=== PATIENT | male | born 1965 | race Caucasian/White ===

== ENCOUNTER 2023-09-14 13:30 | Emergency (ER) | payer OTHER ==
[2023-09-14 14:23] LABS: Absolute Eosinophils 0.2 K/uL (0-0.5); Absolute Lymphocytes (CBC) 1.2 K/uL (0.7-4.9); Absolute Monocytes 0.4 K/uL (0.1-1.3); Absolute Neutrophil 2.1 K/uL (1.8-8.0); Basophils % 0.6 % (0-1.3); Eosinophils % 4.1 % (0-4.4); Hematocrit 35.9 % (39.6-49.0); Hemoglobin 12.2 g/dL (13.6-17.9); Lymphocytes % 29.9 % (15.3-44.8); MCH 34.2 pg (27.0-35.0); MCHC 33.9 g/dL (32.0-36.0); MCV 100.9 fL (80-100); MPV 8.1 fL (7.6-11.3); Monocytes % 11.2 % (3.3-12.3); Neutrophils % 54.2 % (41.7-73.7); Platelets 63 thou/uL (152-406); RBC Red Blood Cell Count 3.56 M/uL (4.33-5.43); Red Cell Distribution Width 14.7 % (12.1-15.2)
[2023-09-14 14:35] LABS: Anion Gap 7.5 mEq/L (5.0-15.0); Potassium 3.5 mEq/L (3.5-5.1); Troponin High Sensitivity 5.6 pg/mL (<58.9)
--- NOTE | 2023-09-14 14:48 | RAD REPORT ---
EXAM DESCRIPTION: Alfredo Single View4 2:30 pm CLINICAL HISTORY: Shortness of breath COMPARISON: 2022 FINDINGS: The lungs appear clear of acute infiltrate. The heart is normal size. Old rib fractures IMPRESSION: No acute abnormalities displayed
[2023-09-14] MEDS ORDERED: FUROSEMIDE 40 MG/4 ML VIAL ONE (14:49)
[2023-09-14 15:19] LABS: Thyroid Stimulating Hormone 1.08 uIU/mL (0.358-3.740)
[2023-09-14 15:25] LABS: Albumin 3.1 g/dL (3.4-5.0); Albumin/Globulin Ratio 0.9 (1.1-1.8); Bilirubin Direct 0.4 mg/dL (0-0.2); Bilirubin Total 1.4 mg/dL (0.2-1.0); Globulin 3.6 g/dL (2.3-3.5); Protein, Total 6.7 g/dL (6.4-8.2)
--- NOTE | 2023-09-14 15:40 | EDPHYS ---
Physician Documentation [facility] Name: Franklyn Pelayo Age: 57 yrs Sex: Male : 1965 Arrival Date: 09/14/2023 Time: 13:30 Bed 6 Private MD: ED Physician Ji Blanchard HPI: 09/13 13:57 This 57 yrs old Male presents to ER via Ambulatory with complaints of Leg ec2 Swelling. 13:57 Patient arrives today due to concern for leg swelling bilaterally as well as shortness ec2 of breath. Patient reports that he has been experiencing worsening bilateral lower extremity edema. Patient reports no fevers or chills, no cough and cold symptoms, does report some baseline shortness of breath which is worsening. Patient reports no exertional component close as well. Denies any chest pain. Historical: - Allergies: 13:38 Codeine; ph 13:38 steroids; ph 13:38 Tegaderm AG Mesh; ph - PMHx: 13:38 Bronchitis; Cirrhosis; Hypertension; ph - PSHx: 13:38 Cholecystectomy; hernia; ph - Immunization history:: Adult Immunizations unknown. - Infectious Disease History:: Denies. - Social history:: Smoking status: Patient reports the use of cigarette tobacco products, smokes one pack cigarettes per day. Patient/guardian denies using alcohol, street drugs. ROS: 13:58 Constitutional: as per hpi ec2 Exam: 13:58 Constitutional: GEN: NAD Head: atraumatic Eyes: EOMI Ears: External ears are ec2 normal. CV: regular rate, bilateral lower extremity edema noted, 3+. LUNGS: no respiratory distress ABD: non-distended SKIN: no evidence of rashes MSK: no evidence of trauma NEURO: moves all extremities equally Vital Signs: 13:37 BP 129 / 81; Pulse 89; Resp 18; Temp 98; Pulse Ox 94% on R/A; Weight 102.97 kg; Height ph 5 ft. 7 in. ; 14:49 BP 130 / 75; Pulse 76; Resp 16; Pulse Ox 95% on R/A; db 15:15 BP 132 / 65; Pulse 79; Resp 16; Pulse Ox 95% on R/A; db 15:42 BP 146 / 79; Pulse 85; Resp 15; Pulse Ox 98% ; ko1 13:37 Body Mass Index 35.55 (102.97 kg, 170.18 cm) ph MDM: 13:43 Patient medically screened. ec2 13:58 Data reviewed: vital signs. ED course: Patient arrives today for evaluation of ec2 bilateral lower extremity swelling as well as dyspnea. Examination remarkable for well-appearing nontoxic dividual is otherwise in no acute distress with lower extremity manage noted above. Will obtain cardiac evaluation, suspect volume overload secondary to likely either CHF or cirrhosis. Likely admission to the hospital for diuresis. EKG obtained, independently reviewed and interpreted by me, shows normal sinus rhythm, rate of 84, no acute ST segment elevations, nonconcerning normals.. 14:40 ED course: CBC shows slight leukopenia, anemia, metabolic profile is reassuring, BNP ec2 within normal ranges. Troponin within normal ranges. Chest x-ray independently reviewed and interpreted by me, shows no significant cardiomegaly, no evidence of pleural effusion, slight amount of vascular congestion noted. Will give the patient Lasix given the patient's bilateral lower extremity edema . 15:39 ED course: On reassessment patient with significant urine output with the IV diuretic, ec2 he shared decision making regarding admission versus outpatient management of his volume overload, patient is not hypoxic or working hard to breathe. Ultimately he decided he would like to return to home. Will discharge him to home and prescribe him additional Lasix for diuresis. Instructed him to follow-up with his primary care doctor. Return precautions given. Presentation consistent with volume overload.. 09/13 13:44 Order name: Basic Metabolic Panel; Complete Time: 14:38 ec2 09/13 13:44 Order name: CBC with Diff ec2 09/13 13:44 Order name: NT PRO-BNP; Complete Time: 14:38 ec2 09/13 13:44 Order name: Troponin HS; Complete Time: 14:38 ec2 09/13 14:00 Order name: LFT's; Complete Time: 15:31 ec2 09/13 14:40 Order name: TSH; Complete Time: 15:31 ec2 09/13 14:40 Order name: T4 Free; Complete Time: 15:31 ec2 09/13 13:44 Order name: XRAY Chest (1 view); Complete Time: 14:50 ec2 09/13 13:44 Order name: Cardiac monitoring; Complete Time: 14:05 ec2 09/13 13:44 Order name: EKG - Nurse/Tech; Complete Time: 14:05 ec2 09/13 13:44 Order name: IV Saline Lock; Complete Time: 14:05 ec2 09/13 13:44 Order name: Labs collected and sent; Complete Time: 14:12 ec2 09/13 13:44 Order name: O2 Per Protocol; Complete Time: 14:05 ec2 09/13 13:44 Order name: O2 Sat Monitoring; Complete Time: 14:05 ec2 Administered Medications: 14:51 Drug: Furosemide IVP 80 mg IVP once; give over 2 minutes Route: IVP; Site: left hand; ko1 15:05 Follow up: Response: No adverse reaction ko1 Disposition Summary: 09/14/23 15:40 Discharge Ordered Condition: Stable ec2 Diagnosis - Volume Overload ec2 Followup: ec2 - With: Private Physician - When: - Reason: Re-evaluation by your physician Discharge Instructions: - Discharge Summary Sheet ec2 - Cirrhosis ec2 - Fluid Restriction ec2 Forms: - Medication Reconciliation Form ec2 - Thank You Letter ec2 - Antibiotic Education ec2 - Prescription Opioid Use ec2 - Patient Portal Instructions ec2 - Leadership Thank You Letter ec2 Prescriptions: - Lasix 40 mg Oral tablet - take 1 tablet ORAL route once daily for 7 days; 7 tablet; Refills: 0, Product ec2 Selection Permitted Signatures: Dispatcher [employer] Enriqueta Norris, RN RN Keisha Boggs RN RN ko1 Ji Blanchard MD MD ec2 Corrections: (The following items were deleted from the chart) 13:44 13:44 BASIC METABOLIC PANEL+C.LAB.BRZ ordered. EDMS EDMS 13:44 13:44 CBC+H.LAB.BRZ ordered. EDMS EDMS 13:44 13:44 PROBNP+C.LAB.BRZ ordered. EDMS EDMS 13:45 13:44 Troponin High Sensitivity+C.LAB.BRZ ordered. EDMS EDMS 13:45 13:45 Chest Single View+RAD.RAD.BRZ ordered. EDMS EDMS
--- NOTE | 2023-09-14 15:40 | ER ---
Nurse's Notes [facility] Name: Franklyn Pelayo Age: 57 yrs Sex: Male : 1965 Arrival Date: 09/14/2023 Time: 13:30 Bed 6 Private MD: Diagnosis: Volume Overload Presentation: 09/13 13:37 Chief complaint: Patient states: Bilateral leg swelling and SOB, has happened before ph but never this bad. Coronavirus screen: Vaccine status: Patient reports receiving the 2nd dose of the covid vaccine. Ebola Screen: No symptoms or risks identified at this time. Initial Sepsis Screen: Does the patient meet any 2 criteria? No. Patient's initial sepsis screen is negative. Does the patient have a suspected source of infection? No. Patient's initial sepsis screen is negative. Risk Assessment: Do you want to hurt yourself or someone else? Patient reports no desire to harm self or others. Onset of symptoms was September 14, 2023. 13:37 Method Of Arrival: Ambulatory ph 13:37 Acuity: RAMONA 3 ph Historical: - Allergies: 13:38 Codeine; ph 13:38 steroids; ph 13:38 Tegaderm AG Mesh; ph - PMHx: 13:38 Bronchitis; Cirrhosis; Hypertension; ph - PSHx: 13:38 Cholecystectomy; hernia; ph - Immunization history:: Adult Immunizations unknown. - Infectious Disease History:: Denies. - Social history:: Smoking status: Patient reports the use of cigarette tobacco products, smokes one pack cigarettes per day. Patient/guardian denies using alcohol, street drugs. Screenin:14 [facility] ED Fall Risk Assessment (Adult) History of falling in the last 3 months, ko1 including since admission No falls in past 3 months (0 pts) Confusion or Disorientation No (0 pts) Intoxicated or Sedated No (0 pts) Impaired Gait No (0 pts) Mobility Assist Device Used No (0 pt) Altered Elimination No (0 pt) Score/Fall Risk Level 0 - 2 = Low Risk Oriented to surroundings, Maintained a safe environment, Educated pt \T\ family on fall prevention, incl call for assistance when getting out of bed, Assessed \T\ reinforced patient's understanding of fall precautions, Provided non-skid footwear, Hourly rounding (assess needs \T\ fall precautionary measures) done, Used ambulatory aids as needed (educated on \T\ assisted with), Used gait belt as appropriate. Abuse screen: Denies threats or abuse. Denies injuries from another. Nutritional screening: No deficits noted. Tuberculosis screening: No symptoms or risk factors identified. Assessment: 14:14 General: Appears in no apparent distress. uncomfortable, Behavior is calm, cooperative, ko1 appropriate for age. Pain: Complains of pain in right leg and left leg. Neuro: No deficits noted. Cardiovascular: Reports shortness of breath, bilateral lower extremity edema. Respiratory: Reports shortness of breath on exertion. GI: No deficits noted. : No deficits noted. EENT: No deficits noted. Derm: No deficits noted. Musculoskeletal: No deficits noted. 15:31 Reassessment: Patient appears in no apparent distress at this time. Patient and/or db family updated on plan of care and expected duration. Pain level reassessed. Patient is alert, oriented x 3, equal unlabored respirations, skin warm/dry/pink. General:. Vital Signs: 13:37 BP 129 / 81; Pulse 89; Resp 18; Temp 98; Pulse Ox 94% on R/A; Weight 102.97 kg; Height ph 5 ft. 7 in. ; 14:49 BP 130 / 75; Pulse 76; Resp 16; Pulse Ox 95% on R/A; db 15:15 BP 132 / 65; Pulse 79; Resp 16; Pulse Ox 95% on R/A; db 15:42 BP 146 / 79; Pulse 85; Resp 15; Pulse Ox 98% ; ko1 13:37 Body Mass Index 35.55 (102.97 kg, 170.18 cm) ph ED Course: 13:33 Patient arrived in ED. ph 13:34 Ji Blanchard MD is Attending Physician. ec2 13:38 Triage completed. ph 13:39 Arm band placed on. ph 13:50 Missed attempt(s): 22 gauge in left antecubital area. Bleeding controlled, band aid ph applied, catheter tip intact. 13:55 Inserted saline lock: 20 gauge in left hand, using aseptic technique. ,using aseptic ph technique. flushes easily but will not draw back blood. 13:59 Lisa Rogers, RN is Primary Nurse. ll1 14:12 LFT's Sent. ko1 14:12 CBC with Diff Sent. ko1 14:12 Basic Metabolic Panel Sent. ko1 14:12 NT PRO-BNP Sent. ko1 14:12 Troponin HS Sent. ko1 14:14 Patient has correct armband on for positive identification. Allergy band placed. Placed ko1 in gown. Bed in low position. Call light in reach. Side rails up X 1. Client placed on continuous cardiac and pulse oximetry monitoring. NIBP monitoring applied. country printer on. Door closed. Noise minimized. Lights dimmed. 14:14 Initial lab(s) drawn, by me, sent to lab. EKG done, by ED staff, reviewed by Ji Blanchard MD. 14:32 XRAY Chest (1 view) In Process Unspecified. EDMS 15:32 Provided Education on:. db 15:42 No provider procedures requiring assistance completed. IV discontinued, intact, ko1 bleeding controlled, No redness/swelling at site. Pressure dressing applied. Administered Medications: 14:51 Drug: Furosemide IVP 80 mg IVP once; give over 2 minutes Route: IVP; Site: left hand; ko1 15:05 Follow up: Response: No adverse reaction ko1 Medication: 15:31 VIS not applicable for this client. db Outcome: 15:40 Discharge ordered by . ec2 15:47 Discharged to home ambulatory, with family, ko1 15:47 Condition: improved 15:47 Discharge instructions given to patient, family, Instructed on discharge instructions, follow up and referral plans. medication usage, Demonstrated understanding of instructions, follow-up care, medications, Prescriptions given X 1, 15:48 Patient left the ED. ko1 Signatures: Dispatcher [employer] Enriqueta Norris RN RN ph Lewis, Lynsay, RN RN jack1 Keisha Reddy RN RN ko1 Lilli Rocha, Ji Dougherty RN, MD MD ec2
[2023-09-14 17:18] LABS: White Blood Cell Scan OK (OK)
[2023-09-14 17:19] LABS: Blood Morphology Comment NOT SEEN (NOT SEEN); Platelet Estimate DECR
[2023-09-14 21:36] VITALS: BP 146/79; TEMP 98; O2SAT 98
--- NOTE | 2023-09-15 13:31 | EKG ---
Test Date: 2023-09-14 Test Time: 12:55:50 Nail Technician: TRINY MEASUREMENT RESULTS: Intervals: Rate: 84 NH: 200 QRSD: 90 QT: 378 QTc: 446 Huddy: P: 72 NH: 200 QRS: 56 T: 59 INTERPRETIVE STATEMENTS: Normal sinus rhythm Normal ECG Compared to ECG 09/27/2022 13:28:40 No significant changes Electronically Signed On 09-15-23 13:28:10 CDT by Eusebio Gandhi
== END 2023-09-14 15:48 | disposition home or self-care (01) ==
LOC: ER 13:30
DX: E87.70 Fluid overload, unspecified (principal); I10 Essential (primary) hypertension; F17.210 Nicotine dependence, cigarettes, uncomplicated; Z88.5 Allergy status to narcotic agent; Z88.8 Allergy status to other drugs, medicaments and biological substances
CPT/HCPCS: 93005; 85025; 80048; 36415; 80076; 84443; 84484; 84439; 83880; 71045; 96374; 99285; J1940

== ENCOUNTER 2024-04-09 12:44 | Emergency (ER) | payer OTHER ==
[2024-04-09 13:31] LABS: Absolute Eosinophils 0.2 K/uL (0-0.5); Absolute Lymphocytes (CBC) 1.2 K/uL (0.7-4.9); Absolute Monocytes 0.6 K/uL (0.1-1.3); Absolute Neutrophil 2.5 K/uL (1.8-8.0); Basophils % 0.6 % (0-1.3); Eosinophils % 5.3 % (0-4.4); Hematocrit 35.2 % (39.6-49.0); Lymphocytes % 27.1 % (15.3-44.8); MCH 34.1 pg (27.0-35.0); MCHC 34.2 g/dL (32.0-36.0); MCV 99.8 fL (80-100); MPV 7.8 fL (7.6-11.3); Monocytes % 12.3 % (3.3-12.3); Neutrophils % 54.7 % (41.7-73.7); Platelets 95 thou/uL (152-406); RBC Red Blood Cell Count 3.53 M/uL (4.33-5.43)
[2024-04-09] MEDS ORDERED: FENTANYL CITR 100 MCG/2 ML ONE (13:31)
[2024-04-09] MEDS ORDERED: ONDANSETRON 4 MG/2 ML VIAL ONE (13:31)
[2024-04-09 13:34] LABS: PT Prothrombin Time 14.9 SECONDS (9.4-12.5); Protime INR 1.34
[2024-04-09 13:34] LABS: Specific Gravity 1.011 (1.005-1.030); Urine Bilirubin NEGATIVE (Negative); Urine Blood Negative (Negative); Urine Clarity Clear (Clear); Urine Color Light-Yellow (Yellow); Urine Glucose NEGATIVE (Negative); Urine Ketones NEGATIVE (Negative); Urine Microscopic Reflex YN NO UMIC; Urine Nitrite NEGATIVE (Negative); Urine Protein NEGATIVE (Negative); Urine Urobilinogen 1+ (Normal); Urine pH 7.5 (5.0-7.0)
[2024-04-09 13:51] LABS: Albumin 2.5 g/dL (3.4-5.0); Albumin/Globulin Ratio 0.6 (1.1-1.8); Anion Gap 7.7 mEq/L (5.0-15.0); Bilirubin Direct 0.3 mg/dL (0-0.2); Bilirubin Indirect, Calculated 0.5 mg/dL (0.2-0.8); Bilirubin Total 0.8 mg/dL (0.2-1.0); Globulin 4.4 g/dL (2.3-3.5); Magnesium 1.8 mg/dL (1.6-2.4); Potassium 3.7 mEq/L (3.5-5.1); Protein, Total 6.9 g/dL (6.4-8.2); Troponin High Sensitivity 5.9 pg/mL (<58.9)
--- NOTE | 2024-04-09 14:24 | RAD REPORT ---
EXAMINATION: UPPER EXTREMITY VENOUS UNILATE CLINICAL INDICATION: Male, 58 years old. [facility] MAIN Pain;Swelling Bed Name: 7 TECHNIQUE: Complete venous duplex sonography of the right upper extremity was performed. The examinat ion included compression for vein patency, color Doppler imaging and flow augmentation in response to distal compression of the internal jugular, brachiocephalic, subclavian, axillary, brachial, radia l, ulnar, cephalic and basilic veins. COMPARISON: No prior exam. FINDINGS: Duplex sonography testing of the veins of the right upper extremity is completed. Color flow imaging shows all veins to be compressible with appropriate color filling. Pulsatile and phasic flow is present within the upper extremity deep and superficial veins examined. IMPRESSION: There is no deep vein or superficial vein thrombosis.
[2024-04-09 15:13] LABS: SARS-CoV-2 Antigen CONTROL BLUE LINE VIS/BG OK; SARS-CoV-2 Antigen Rapid Res Negative (Negative)
--- NOTE | 2024-04-09 15:41 | RAD REPORT ---
EXAMINATION: ONE VIEW CHEST XR CLINICAL INDICATION: Male, 58 years old.,Cough;Dyspnea TECHNIQUE: Frontal chest projection is submitted. Examination is limited by patient positioning and t echnique. COMPARISON: 09/14/2023 FINDINGS: The lungs are clear. Hypoinflation of the right lung again seen.. No pneumothorax or sizable effusio n. The heart is normal in size. Deformities along the upper right ribs again seen. IMPRESSION: No acute intrathoracic abnormalities.
--- NOTE | 2024-04-09 15:44 | RAD REPORT ---
EXAMINATION:XR Elbow Right 3 View CLINICAL INDICATION: Male, 58 years old. PAIN RIGHT TECHNIQUE: 3 view radiographs of the right elbow were obtained. COMPARISON: No prior exam. FINDINGS: Soft tissue swelling, with cortical irregularity and multiple radiodense foci at the level of the tri ceps tendon insertion. Normal alignment. No joint effusion. No evidence of arthropathy. No suspicious focal bone lesion. IMPRESSION: Abnormalities of the distal triceps tendon and its level of insertion at the olecranon, which may rel ate to severe sequelae of enthesitis, bursitis, or calcific tendinitis.
--- NOTE | 2024-04-09 15:56 | ER ---
Nurse's Notes [facility] Name: Franklyn Pelayo Age: 58 yrs Sex: Male : 1965 Arrival Date: 04/09/2024 Time: 12:44 Bed 7 Private MD: Diagnosis: Unspecified cirrhosis of liver;Pain in right forearm;Pain in right arm;Effusion, right elbow;Other specified disorders of tendon, right elbow;Other specified disorders of synovium and tendon, unspecified elbow Presentation: 04/09 12:53 Onset of symptoms was March 2024. aa5 12:53 Acuity: RAMONA 3 aa5 12:53 Chief complaint: Patient states: "my right arm is swollen and I saw the doctor Thursday and Thursday and they want me to get more testing done like a Doppler and x-ray". Pt states "I also feel a little more short of breath than normal". Coronavirus screen: shortness of breath. Ebola Screen: Patient denies travel to an Ebola-affected area in the 21 days before illness onset. Initial Sepsis Screen: Does the patient meet any 2 criteria? RR > 20 per min. Does the patient have a suspected source of infection? No. Patient's initial sepsis screen is negative. Risk Assessment: Do you want to hurt yourself or someone else? Patient reports no desire to harm self or others. 12:53 Method Of Arrival: Ambulatory aa5 Triage Assessment: 12:57 General: Appears in no apparent distress. Behavior is cooperative, appropriate for age, bp anxious. Pain: Complains of pain in dorsal aspect of right forearm. EENT: No deficits noted. Neuro: No deficits noted. Cardiovascular: No deficits noted. Respiratory: Reports shortness of breath Onset: The symptoms/episode began/occurred at an unknown time. the patient reports symptoms have resolved. GI: No signs and/or symptoms were reported involving the gastrointestinal system. : No signs and/or symptoms were reported regarding the genitourinary system. Derm: No deficits noted. Musculoskeletal: No deficits noted. Historical: - Allergies: 12:53 Codeine; aa5 12:53 steroids; aa5 12:53 Tegaderm AG Mesh; aa5 - PMHx: 12:53 Bronchitis; Cirrhosis; Hypertension; aa5 - PSHx: 12:53 Cholecystectomy; hernia; aa5 - Immunization history:: Adult Immunizations up to date. - Infectious Disease History:: Denies. - Social history:: Smoking status: . Screenin:59 [facility] ED Fall Risk Assessment (Adult) History of falling in the last 3 months, bp including since admission No falls in past 3 months (0 pts) Confusion or Disorientation No (0 pts) Intoxicated or Sedated No (0 pts) Impaired Gait No (0 pts) Mobility Assist Device Used No (0 pt) Altered Elimination No (0 pt) Score/Fall Risk Level 0 - 2 = Low Risk. Abuse screen: Denies threats or abuse. Denies injuries from another. Nutritional screening: No deficits noted. Tuberculosis screening: No symptoms or risk factors identified. Assessment: 12:58 General: Appears in no apparent distress. Behavior is cooperative, appropriate for age, bp anxious. Cardiovascular: Rhythm is regular. Respiratory: Airway is patent Respiratory effort is even, unlabored, Breath sounds are clear bilaterally. 13:30 General: Appears in no apparent distress. Pain: Complains of pain in right arm. ph Musculoskeletal: Swelling present in right arm. 14:29 Reassessment: Patient appears in no apparent distress at this time. Patient is alert, bp oriented x 3, equal unlabored respirations, skin warm/dry/pink. 16:00 Reassessment: DC ON HOLD FOR MEDS. bp Vital Signs: 12:53 BP 117 / 70; Pulse 88; Resp 22 S; Temp 97.5(TE); Pulse Ox 97% on R/A; Weight 105.69 kg aa5 (R); Height 5 ft. 7 in. (R); 14:28 BP 123 / 68; Pulse 93; Resp 16; Pulse Ox 94% ; bp 15:30 BP 126 / 78; Pulse 86; Resp 18; Temp 97.2; Pulse Ox 99% on R/A; ph 16:30 BP 122 / 75; Pulse 86; Resp 18; Pulse Ox 96% ; bp 12:53 Body Mass Index 36.49 (105.69 kg, 170.18 cm) aa5 ED Course: 12:49 Patient arrived in ED. ra3 12:53 Triage completed. aa5 12:53 Arm band placed on. aa5 12:56 Segundo Donato MD is Attending Physician. [facility] 12:57 Neville Wilcox, KATE is Primary Nurse. bp 12:59 Patient has correct armband on for positive identification. bp 13:15 Initial lab(s) drawn, by me, sent to lab. First set of blood cultures drawn Urine ph collected: clean catch specimen, EKG done, by ED staff, reviewed by Segundo Donato MD COVID swab sent to lab. Flu and/or RSV swab sent to lab. 13:19 Inserted saline lock: 20 gauge in left antecubital area, using aseptic technique. Blood ph collected. Flushed with 10 mL NS. 14:15 UPPER EXTREMITY VENOUS UNILATE In Process Unspecified. EDMS 14:41 Elbow Right 3 View XRAY In Process Unspecified. EDMS 14:41 Chest Single View XRAY In Process Unspecified. EDMS 15:40 No provider procedures requiring assistance completed. ph 15:55 Sunday Quigley MD is Referral Physician. ramón 17:09 IV discontinued, intact, bleeding controlled, No redness/swelling at site. Pressure ph dressing applied. Administered Medications: 13:40 Drug: fentaNYL (PF) IVP 50 mcg IVP once Route: IVP; Site: left antecubital; ph 14:00 Follow up: Response: No adverse reaction; Pain is decreased; RASS: Alert and Calm (0) ph 13:40 Drug: Ondansetron IVP 4 mg IVP once; over 2 minutes Route: IVP; Site: left antecubital; ph 17:07 Follow up: Response: No adverse reaction ph 15:15 Not Given (Hemodynamic Parameters): ns 0.9% 1000 ml IV at 125 ml/hr continuous bp 16:35 Drug: colchicine 0.6 mg 1.2 mg PO once Route: PO; bp 17:07 Follow up: Response: No adverse reaction ph 16:35 Drug: colchicine 0.6 mg 0.6 mg PO once; IN ONE HOUR Route: PO; bp 17:07 Follow up: Response: No adverse reaction ph 16:35 Drug: Cephalexin PO 500 mg PO once Route: PO; bp 17:06 Follow up: Response: No adverse reaction ph 16:35 Drug: ceFAZolin IVPB 2 grams IVPB once over 30 mins; (mix in 100 mL NS) Route: IVPB; bp Infused Over: 30 mins; Site: left antecubital; 17:06 Follow up: Response: No adverse reaction; IV Status: Completed infusion ph 16:35 Drug: Trimethoprim-Sulfamethoxazole PO (160 mg-800 mg (DS) 1 tablet PO once Route: PO; bp 17:06 Follow up: Response: No adverse reaction ph Medication: 13:20 VIS not applicable for this client. ph Outcome: 15:56 Discharge ordered by . ramón 17:09 Discharged to home ambulatory, ph 17:09 Condition: good 17:09 Discharge instructions given to patient, Instructed on discharge instructions, follow up and referral plans. medication usage, Demonstrated understanding of instructions, follow-up care, medications, Prescriptions given X 4, 17:10 Patient left the ED. ph Signatures: Dispatcher [employer] EDW[place] Segundo Donato MD MD cha Calderon, Audri, RN RN [email or web address] Enriqueta Abdul RN RN ph Neville Wilcox RN RN bp Thais Ledbetter ra3 Corrections: (The following items were deleted from the chart) 14:35 14:34 Ondansetron IVP 4 mg IVP in left antecubital ph ph 14:35 14:35 fentaNYL (PF) IVP 50 mcg IVP in left antecubital ph ph
--- NOTE | 2024-04-09 15:56 | EDPHYS ---
Physician Documentation [facility] Name: Franklyn Pelayo Age: 58 yrs Sex: Male : 1965 Arrival Date: 04/09/2024 Time: 12:44 Bed 7 Private MD: ED Physician Segundo Donato HPI: 04/09 14:37 This 58 yrs old Male presents to ER via Ambulatory with complaints of ramón Breathing Difficulty. 14:37 The patient has shortness of breath at rest, with light activity. Onset: The ramón symptoms/episode began/occurred 2 week(s) ago. Duration: The symptoms are continuous, and are steadily getting worse. The patient's shortness of breath is aggravated by nothing. Associated signs and symptoms: Pertinent positives: non-productive cough. Severity of symptoms: At their worst the symptoms were mild in the emergency department the symptoms are unchanged. Historical: - Allergies: 12:53 Codeine; aa5 12:53 steroids; aa5 12:53 Tegaderm AG Mesh; aa5 - PMHx: 12:53 Bronchitis; Cirrhosis; Hypertension; aa5 - PSHx: 12:53 Cholecystectomy; hernia; aa5 - Immunization history:: Adult Immunizations up to date. - Infectious Disease History:: Denies. - Social history:: Smoking status: . ROS: 14:39 Constitutional: Negative for fever, chills, and weight loss, Eyes: Negative for injury, ramón pain, redness, and discharge, ENT: Negative for injury, pain, and discharge, Neck: Negative for injury, pain, and swelling, Cardiovascular: Negative for chest pain, palpitations, and edema, Respiratory: Negative for shortness of breath, cough, wheezing, and pleuritic chest pain, Abdomen/GI: Negative for abdominal pain, nausea, vomiting, diarrhea, and constipation, Back: Negative for injury and pain, : Negative for injury, bleeding, discharge, and swelling, Skin: Negative for injury, rash, and discoloration, Neuro: Negative for headache, weakness, numbness, tingling, and seizure, Psych: Negative for depression, anxiety, suicide ideation, homicidal ideation, and hallucinations, Allergy/Immunology: Negative for hives, rash, and allergies, Endocrine: Negative for neck swelling, polydipsia, polyuria, polyphagia, and marked weight changes, Hematologic/Lymphatic: Negative for swollen nodes, abnormal bleeding, and unusual bruising, 14:39 MS/extremity: Positive for decreased range of motion, pain, swelling, tenderness, of the right antecubital area, dorsal aspect of right forearm and right elbow, Exam: 14:39 Constitutional: This is a well developed, well nourished patient who is awake, alert, ramón and in no acute distress. Head/Face: Normocephalic, atraumatic. Eyes: Pupils equal round and reactive to light, extra-ocular motions intact. Lids and lashes normal. Conjunctiva and sclera are non-icteric and not injected. Cornea within normal limits. Periorbital areas with no swelling, redness, or edema. ENT: Nares patent. No nasal discharge, no septal abnormalities noted. Tympanic membranes are normal and external auditory canals are clear. Oropharynx with no redness, swelling, or masses, exudates, or evidence of obstruction, uvula midline. Mucous membranes moist. Neck: Trachea midline, no thyromegaly or masses palpated, and no cervical lymphadenopathy. Supple, full range of motion without nuchal rigidity, or vertebral point tenderness. No Meningismus. Chest/axilla: Normal chest wall appearance and motion. Nontender with no deformity. No lesions are appreciated. Cardiovascular: Regular rate and rhythm with a normal S1 and S2. No gallops, murmurs, or rubs. Normal PMI, no JVD. No pulse deficits. Respiratory: Lungs have equal breath sounds bilaterally, clear to auscultation and percussion. No rales, rhonchi or wheezes noted. No increased work of breathing, no retractions or nasal flaring. Abdomen/GI: Soft, non-tender, with normal bowel sounds. No distension or tympany. No guarding or rebound. No evidence of tenderness throughout. Back: No spinal tenderness. No costovertebral tenderness. Full range of motion. Male : Normal genitalia with no discharge or lesions. Skin: Warm, dry with normal turgor. Normal color with no rashes, no lesions, and no evidence of cellulitis. Neuro: Awake and alert, GCS 15, oriented to person, place, time, and situation. Cranial nerves II-XII grossly intact. Motor strength 5/5 in all extremities. Sensory grossly intact. Cerebellar exam normal. Normal gait. Psych: Awake, alert, with orientation to person, place and time. Behavior, mood, and affect are within normal limits. 14:39 ECG was reviewed by the Attending Physician. Vital Signs: 12:53 BP 117 / 70; Pulse 88; Resp 22 S; Temp 97.5(TE); Pulse Ox 97% on R/A; Weight 105.69 kg aa5 (R); Height 5 ft. 7 in. (R); 14:28 BP 123 / 68; Pulse 93; Resp 16; Pulse Ox 94% ; bp 15:30 BP 126 / 78; Pulse 86; Resp 18; Temp 97.2; Pulse Ox 99% on R/A; ph 16:30 BP 122 / 75; Pulse 86; Resp 18; Pulse Ox 96% ; bp 12:53 Body Mass Index 36.49 (105.69 kg, 170.18 cm) aa5 MDM: 12:56 Medical Screening Exam initiated ramón 14:41 Differential diagnosis: closed fracture, contusion, abrasion, tendonitis, CHF ramón exacerbation, pneumonia, Pneumothorax pulmonary edema, Pulmonary Embolism reactive airway disease, Sepsis Unstable Angina. Antibiotic administration: Not indicated. Immunization status: Influenza vaccine: within last 5 years. Data reviewed: vital signs, nurses notes, lab test result(s), EKG, radiologic studies, plain films. Consideration of Admission/Observation Patient was admitted/placed on observation. Escalation of care including admission/observation considered. I considered the following discharge prescriptions or medication management in the emergency department Medications were administered in the Emergency Department. See MAR. Independent interpretation of the following test(s) in the Emergency Department EKG: See my EKG interpretation above. Test considered but Not performed: MRI: NO MRI RIGHT ELBOW. Historians other than the Patient: PT WELL INFORMED. 04/09 13:01 Order name: Basic Metabolic Panel [facility] 04/09 13:01 Order name: CBC with Diff 04/09 13:01 Order name: LFT's 04/09 13:01 Order name: Magnesium [facility] 04/09 13:01 Order name: NT PRO-BNP [facility] 04/09 13:01 Order name: PT-INR; Complete Time: 14:25 04/09 13:01 Order name: Troponin HS [facility] 04/09 13:01 Order name: Lipase 04/09 13:01 Order name: AMMONIA; Complete Time: 14:25 04/09 13:01 Order name: Urinalysis w/ reflexes; Complete Time: 14:25 [facility] 04/09 13:01 Order name: SARS RAPID; Complete Time: 15:36 [facility] 04/09 13:01 Order name: Flu; Complete Time: 15:36 [facility] 04/09 13:01 Order name: Blood Culture Adult (2) [facility] 04/09 13:01 Order name: Lactate w/ 2H reflex if indic.; Complete Time: 14:25 [facility] 04/09 15:59 Order name: Uric Acid [facility] 04/09 16:33 Order name: CBC Smear Scan [facility] 04/09 13:32 Order name: UPPER EXTREMITY VENOUS UNILATE; Complete Time: 14:25 [facility] 04/09 14:13 Order name: Elbow Right 3 View XRAY; Complete Time: 15:54 [facility] 04/09 14:27 Order name: Chest Single View XRAY; Complete Time: 15:54 [facility] 04/09 13:01 Order name: EKG; Complete Time: 13:02 [facility] 04/09 13:01 Order name: Cardiac monitoring; Complete Time: 13:57 [facility] 04/09 13:01 Order name: EKG - Nurse/Tech; Complete Time: 13:57 [facility] 04/09 13:01 Order name: IV Saline Lock; Complete Time: 13:57 [facility] 04/09 13:01 Order name: Labs collected and sent; Complete Time: 13:57 [facility] 04/09 13:01 Order name: O2 Per Protocol; Complete Time: 13:57 [facility] 04/09 13:01 Order name: O2 Sat Monitoring; Complete Time: 13:57 [facility] 04/09 15:39 Order name: Ice pack; Complete Time: 16:06 [facility] EC:39 Rate is 79 beats/min. Rhythm is regular. QRS [place] is Normal. [place] interval is normal. QRS ramón interval is normal. QT interval is normal. No Q waves. T waves are Normal. Clinical impression: Normal ECG, NSR w/ Non-specific ST/T Changes, and No evidence of ischemia. Reviewed by me. Administered Medications: 13:40 Drug: fentaNYL (PF) IVP 50 mcg IVP once Route: IVP; Site: left antecubital; ph 14:00 Follow up: Response: No adverse reaction; Pain is decreased; RASS: Alert and Calm (0) ph 13:40 Drug: Ondansetron IVP 4 mg IVP once; over 2 minutes Route: IVP; Site: left antecubital; ph 17:07 Follow up: Response: No adverse reaction ph 15:15 Not Given (Hemodynamic Parameters): ns 0.9% 1000 ml IV at 125 ml/hr continuous bp 16:35 Drug: colchicine 0.6 mg 1.2 mg PO once Route: PO; bp 17:07 Follow up: Response: No adverse reaction ph 16:35 Drug: colchicine 0.6 mg 0.6 mg PO once; IN ONE HOUR Route: PO; bp 17:07 Follow up: Response: No adverse reaction ph 16:35 Drug: Cephalexin PO 500 mg PO once Route: PO; bp 17:06 Follow up: Response: No adverse reaction ph 16:35 Drug: ceFAZolin IVPB 2 grams IVPB once over 30 mins; (mix in 100 mL NS) Route: IVPB; bp Infused Over: 30 mins; Site: left antecubital; 17:06 Follow up: Response: No adverse reaction; IV Status: Completed infusion ph 16:35 Drug: Trimethoprim-Sulfamethoxazole PO (160 mg-800 mg (DS) 1 tablet PO once Route: PO; bp 17:06 Follow up: Response: No adverse reaction ph Disposition Summary: 04/09/24 15:56 Discharge Ordered Notes: Location: Home ramón Problem: new ramón Symptoms: have improved ramón Condition: Stable ramón Diagnosis - Unspecified cirrhosis of liver ramón - Pain in right forearm ramón - Pain in right arm ramón - Effusion, right elbow ramón - Other specified disorders of tendon, right elbow ramón - Other specified disorders of synovium and tendon, unspecified elbow ramón Followup: ramón - With: Private Physician - When: 2 - 3 days - Reason: Recheck today's complaints, Continuance of care, Re-evaluation by your physician Followup: ramón - With: Sunday Quigley MD - When: 2 - 3 days - Reason: Recheck today's complaints, Re-evaluation by your physician Discharge Instructions: - Discharge Summary Sheet ramón - Cirrhosis ramón - Elbow Contusion ramón - Elbow Bursitis ramón - How to Use Cold Therapy ramón - Elbow Sprain ramón Forms: - Medication Reconciliation Form ramón - Antibiotic Education ramón - Prescription Opioid Use ramón - Patient Portal Instructions ramón - Leadership Thank You Letter ramón Prescriptions: - colchicine 0.6 mg Oral tablet - take 2 tablet ORAL route 2 times per day; 6 tablet; Refills: 0, Product ramón Selection Permitted - diclofenac sodium 25 mg Oral tablet, delayed release (enteric coated) - take 1 tablet ORAL route 3 times per day; 21 tablet; Refills: 0, Product [facility] Selection Permitted - Cephalexin 500 mg Oral Capsule - take 1 capsule ORAL route every 6 hours for 10 days; 40 capsule; Refills: 0, [facility] Product Selection Permitted - Bactrim DS 800-160 mg Oral Tablet - take 1 tablet ORAL route every 12 hours for 10 days; 20 tablet; Refills: 0, [facility] Product Selection Permitted Signatures: Dispatcher [employer] EDMS Segundo Donato MD MD cha Calderon, Audri RN RN aa5 Enriqueta Abdul RN RN Neville Wilcox, RN RN bp Corrections: (The following items were deleted from the chart) 13:02 13:02 BASIC METABOLIC PANEL+C.LAB.BRZ ordered. EDMS EDMS 13:02 13:02 CBC+H.LAB.BRZ ordered. EDMS EDMS 13:02 13:02 HEPATIC FUNCTION+C.LAB.BRZ ordered. EDMS EDMS 13:02 13:02 MAGNESIUM+C.LAB.BRZ ordered. EDMS EDMS 13:02 13:02 PROBNP+C.LAB.BRZ ordered. EDMS EDMS 13:02 13:02 PROTIME (+INR)+COAG.LAB.BRZ ordered. EDMS EDMS 13:02 13:02 Troponin High Sensitivity+C.LAB.BRZ ordered. EDMS EDMS 13:02 13:02 LIPASE+C.LAB.BRZ ordered. EDMS EDMS 13:02 13:02 AMMONIA+C.LAB.BRZ ordered. EDMS EDMS 13:02 13:02 Urinalysis+U.LAB.BRZ ordered. EDMS EDMS 13:02 13:02 SARS-COV-2 Antigen Rapid+I.LAB.BRZ ordered. EDMS EDMS 13:02 13:02 Influenza Screen (A \T\ B)+BA.LAB.BRZ ordered. EDMS EDMS 13:02 13:02 BLOOD CULTURE*+BA.LAB.BRZ ordered. EDMS EDMS 13:02 13:02 LACTATE+C.LAB.BRZ ordered. EDMS EDMS 13:30 13:29 Extremity Venous Uni Ltd+US.RAD.BRZ ordered. EDMS EDMS 16:00 15:39 URIC ACID+C.LAB.BRZ ordered. EDMS EDMS 17:08 15:39 Sling ordered. ramón ph
[2024-04-09] MEDS ORDERED: CEPHALEXIN 250 MG CAP ONE (16:13)
[2024-04-09] MEDS ORDERED: SMZ./TMP. 800/160 MG TABLET ONE (16:13)
[2024-04-09] MEDS ORDERED: CEFAZOLIN SODIUM 2 GM/VIAL ONE (16:14)
[2024-04-09] MEDS ORDERED: COLCHICINE 0.6 MG TAB ONE (16:14)
[2024-04-09] MEDS ORDERED: NA CHLORIDE 0.9% 100 ML ONE (16:14)
[2024-04-09 16:32] LABS: Blood Morphology Comment NOT SEEN (NOT SEEN); Platelet Estimate DECR; White Blood Cell Scan OK (OK)
[2024-04-09 16:45] LABS: Uric Acid 1.8 mg/dL (3.5-7.2)
[2024-04-10 04:31] VITALS: TEMP 97.2
[2024-04-10 04:37] VITALS: BP 122/75; O2SAT 96
--- NOTE | 2024-04-10 15:03 | EKG ---
Test Date: 2024-04-09 Test Time: 13:22:22 Hotel Front Desk Clerk: AM MEASUREMENT RESULTS: Intervals: Rate: 79 MD: 192 QRSD: 90 QT: 392 QTc: 449 [place]: P: 41 MD: 192 QRS: 49 T: 44 INTERPRETIVE STATEMENTS: Normal sinus rhythm Normal ECG Compared to ECG 09/14/2023 12:55:50 No significant changes Electronically Signed On 04-10-24 15:02:42 CDT by Naren Johnson
== END 2024-04-09 17:10 | disposition home or self-care (01) ==
LOC: ER 12:44
DX: K74.60 Unspecified cirrhosis of liver (principal); M25.421 Effusion, right elbow; M67.823 Other specified disorders of tendon, right elbow; M79.631 Pain in right forearm; M79.601 Pain in right arm; I10 Essential (primary) hypertension; Z11.52 Encounter for screening for COVID-19
CPT/HCPCS: 96365; 93005; 87040 ×2; 85025; 80048; 36415; 82140; 83735; 85610; 80076; 84550; 83605; 81003; 84484; 83690; 83880; 87804 ×2; 71045; 73080; 93971; 96375; 99284; 87811; J3010; J2405

== ENCOUNTER 2024-05-31 12:41 | Emergency (ER) | payer OTHER ==
--- NOTE | 2024-05-31 14:04 | RAD REPORT ---
Exam:Elbow Right 3 View HISTORY: Right elbow pain FINDINGS: No fracture or dislocation seen Soft tissue swelling with bony/calcific densities posterior elbow unchanged from March 2024
--- NOTE | 2024-05-31 15:05 | RAD REPORT ---
EXAMINATION: UPPER EXTREMITY VENOUS UNILATE CLINICAL INDICATION: Arm pain TECHNIQUE: Complete bilateral duplex sonography of the right upper extremity veins was performed. The examination included compression for vein patency, color Doppler imaging and flow augmentation in response to distal compression of the internal jugular,, subclavian, axillary, brachial, radial, ulna r, cephalic and basilic veins. .Grayscale, color and spectral analysis performed on all vessels COMPARISON: No prior exam. FINDINGS: The internal jugular, subclavian, axillary, brachial, basilic, cephalic, radial and ulnar veins are g enerally compressible and demonstrate augmentation. Color Doppler demonstrates good flow. IMPRESSION: No evidence of venous thrombus right arm
[2024-05-31] MEDS ORDERED: KETOROLAC 30 MG/ML INJ ONE (15:34)
[2024-05-31] MEDS ORDERED: CEPHALEXIN 250 MG CAP ONE (15:35)
--- NOTE | 2024-05-31 15:35 | EDPHYS ---
Physician Documentation [facility] Name: Franklyn Pelayo Age: 58 yrs Sex: Male : 1965 Arrival Date: 05/31/2024 Time: 12:41 Bed 12 Private MD: ED Physician Kendall Mora HPI: 05/31 13:43 This 58 yrs old Male presents to ER via Ambulatory with complaints of Arm swelling. kb Historical: - Allergies: 13:00 Codeine; tm6 13:00 steroids; tm6 13:00 Tegaderm AG Mesh; tm6 - PMHx: 13:00 Bronchitis; Cirrhosis; Hypertension; tm6 - PSHx: 13:00 Cholecystectomy; hernia; tm6 - Immunization history:: Flu vaccine is not up to date. - Infectious Disease History:: Denies. - Social history:: Smoking status: Patient reports the use of cigarette tobacco products, smokes one pack cigarettes per day. ROS: 13:41 Constitutional: As per HPI kb Exam: 13:42 Constitutional: This is a well developed, well nourished patient who is awake, alert, kb and in no acute distress. Head/Face: Normocephalic, atraumatic. ENT: Moist Mucous membranes Cardiovascular: Regular rate Respiratory: Respirations even and unlabored. No increased work of breathing. Talking in full sentences Skin: Warm, dry with normal turgor. Normal color. Neuro: Awake and alert, GCS 15, oriented to person, place, time, and situation. 13:42 Musculoskeletal/extremity: Extremities: grossly normal except: noted in the right elbow: decreased ROM, pain, swelling, tenderness, ROM: limited active range of motion, limited active range of motion due to pain, Circulation is intact in all extremities. Sensation intact. Vital Signs: 12:58 Temp 99.2(O); Pulse Ox 99% on R/A; tm6 12:59 BP 123 / 69; Pulse 91; Resp 17; MAP 84 mmHg; tm6 13:01 Height 5 ft. 7 in. ; tm6 13:02 Pain 10/10; tm6 13:02 Pain Scale: Adult tm6 MDM: 12:55 Medical Screening Exam initiated kb 13:43 Data reviewed: vital signs, nurses notes. 05/31 13:01 Order name: Elbow Right 3 View XRAY; Complete Time: 14:05 kb 05/31 13:25 Order name: UPPER EXTREMITY VENOUS UNILATE; Complete Time: 15:08 EDMS Administered Medications: 15:43 Drug: Ketorolac IM 30 mg IM once Route: IM; Site: left deltoid; jb4 15:44 Follow up: Response: Medication administered at discharge. jb4 15:44 Drug: Cephalexin PO 500 mg PO once Route: PO; jb4 15:45 Follow up: Response: Medication administered at discharge. jb4 Disposition: 17:01 I was immediately available on-site in the Emergency Department for consultation in the ms3 care of the patient. Disposition Summary: 05/31/24 15:35 Discharge Ordered Notes: Location: Home kb Condition: Stable kb Diagnosis - Pain in right elbow kb Followup: kb - With: Private Physician - When: 2 - 3 days - Reason: Recheck today's complaints, Continuance of care, Re-evaluation by your physician Followup: kb - With: Emergency Department - When: As needed - Reason: Worsening of condition Discharge Instructions: - Discharge Summary Sheet kb - Cellulitis, Adult, Bzgm-eo-[id number] kb - Elbow Bursitis, Iacj-yx-Yfcy kb Forms: - Medication Reconciliation Form kb - Antibiotic Education kb - Prescription Opioid Use kb - Patient Portal Instructions kb - Leadership Thank You Letter kb Prescriptions: - Cephalexin 500 mg Oral Capsule - take 1 capsule ORAL route every 8 hours for 10 days; 30 capsule; Refills: 0, kb Product Selection Permitted Signatures: Dispatcher [employer] EDDana Medley, ESTATE [employer]ING [employer]-C [employer]-Desean Stratton, RN RN jb4 Kendall Mora DO DO ms3 Rosalie Gordon, RN RN tm6 Corrections: (The following items were deleted from the chart) 13:25 13:01 Extrmty Nonvasular Limited+US.RAD.BRZ ordered. EDCT EDMS
--- NOTE | 2024-05-31 15:35 | ER ---
Nurse's Notes [facility] Name: Franklyn Pelayo Age: 58 yrs Sex: Male : 1965 Arrival Date: 05/31/2024 Time: 12:41 Bed 12 Private MD: Diagnosis: Pain in right elbow Presentation: 05/31 12:59 Chief complaint: Patient states: last June I fell, hit my right arm. Right arm now tm6 swelling, cannot straighten. Coronavirus screen: Client denies travel out of the [place] in the last 14 days. Ebola Screen: Patient negative for fever greater than or equal to 101.5 degrees Fahrenheit, and additional compatible Ebola Virus Disease symptoms Patient denies exposure to infectious person. Patient denies travel to an Ebola-affected area in the 21 days before illness onset. No symptoms or risks identified at this time. Initial Sepsis Screen: Does the patient meet any 2 criteria? No. Patient's initial sepsis screen is negative. Does the patient have a suspected source of infection? No. Patient's initial sepsis screen is negative. Risk Assessment: Do you want to hurt yourself or someone else? Patient reports no desire to harm self or others. Onset of symptoms was May 31, 2024. 12:59 Method Of Arrival: Ambulatory tm6 12:59 Acuity: RAMONA 4 tm6 Triage Assessment: 13:01 General: Appears in no apparent distress. Behavior is calm, cooperative. Pain: tm6 Complains of pain in right arm Pain currently is 10 out of 10 on a pain scale. EENT: No signs and/or symptoms were reported regarding the EENT system. Neuro: Level of Consciousness is awake, alert, obeys commands, Oriented to person, place, time, situation. Cardiovascular: Patient's skin is warm and dry. Respiratory: Airway is patent Respiratory effort is even, unlabored, Respiratory pattern is regular, symmetrical. GI: No signs and/or symptoms were reported involving the gastrointestinal system. Abdomen is round. : No signs and/or symptoms were reported regarding the genitourinary system. Derm: No signs and/or symptoms reported regarding the dermatologic system. Musculoskeletal: Swelling present in right arm Reports pain in right arm. Historical: - Allergies: 13:00 Codeine; tm6 13:00 steroids; tm6 13:00 Tegaderm AG Mesh; tm6 - PMHx: 13:00 Bronchitis; Cirrhosis; Hypertension; tm6 - PSHx: 13:00 Cholecystectomy; hernia; tm6 - Immunization history:: Flu vaccine is not up to date. - Infectious Disease History:: Denies. - Social history:: Smoking status: Patient reports the use of cigarette tobacco products, smokes one pack cigarettes per day. Screenin:34 [facility] ED Fall Risk Assessment (Adult) History of falling in the last 3 months, jb4 including since admission No falls in past 3 months (0 pts) Confusion or Disorientation No (0 pts) Intoxicated or Sedated No (0 pts) Impaired Gait No (0 pts) Mobility Assist Device Used No (0 pt) Altered Elimination No (0 pt) Score/Fall Risk Level 0 - 2 = Low Risk Oriented to surroundings, Maintained a safe environment. Abuse screen: Denies threats or abuse. Nutritional screening: No deficits noted. Tuberculosis screening: No symptoms or risk factors identified. Assessment: 15:34 General: Appears in no apparent distress. uncomfortable, Behavior is calm, cooperative, jb4 appropriate for age. Pain: Complains of pain in right arm Pain radiates to right hand Pain currently is 10 out of 10 on a pain scale. Neuro: Level of Consciousness is awake, alert, obeys commands, Oriented to person, place, time, situation. Cardiovascular: Patient's skin is warm and dry. Respiratory: No deficits noted. Derm: Skin is intact, Skin is pink, warm \T\ dry. Musculoskeletal: Circulation, motion, and sensation intact. Range of motion: intact in all extremities. 15:55 Reassessment: Patient appears in no apparent distress at this time. Patient and/or jb4 family updated on plan of care and expected duration. Pain level reassessed. Patient is alert, oriented x 3, equal unlabored respirations, skin warm/dry/pink. Vital Signs: 12:58 Temp 99.2(O); Pulse Ox 99% on R/A; tm6 12:59 BP 123 / 69; Pulse 91; Resp 17; MAP 84 mmHg; tm6 13:01 Height 5 ft. 7 in. ; tm6 13:02 Pain 10/10; tm6 13:02 Pain Scale: Adult tm6 ED Course: 12:46 Patient arrived in ED. mr 12:55 [facility] Ho FNP-C [facility] kb 12:55 Kendall Mora DO is Attending Physician. kb 13:00 Triage completed. tm6 13:01 Arm band placed on left wrist. tm6 13:02 Allergy band placed. tm6 13:40 Elbow Right 3 View XRAY In Process Unspecified. EDMS 14:03 UPPER EXTREMITY VENOUS UNILATE In Process Unspecified. EDMS 15:33 Desean Harry, RN is Primary Nurse. jb4 15:34 Provided Education on: plan of care. jb4 15:55 No provider procedures requiring assistance completed. Patient did not have IV access jb4 during this emergency room visit. Administered Medications: 15:43 Drug: Ketorolac IM 30 mg IM once Route: IM; Site: left deltoid; jb4 15:44 Follow up: Response: Medication administered at discharge. jb4 15:44 Drug: Cephalexin PO 500 mg PO once Route: PO; jb4 15:45 Follow up: Response: Medication administered at discharge. jb4 Medication: 15:34 VIS not applicable for this client. jb4 Outcome: 15:35 Discharge ordered by MD. kb 15:55 Discharged to home ambulatory, jb4 15:55 Condition: stable 15:55 Discharge instructions given to patient, Instructed on discharge instructions, follow up and referral plans. medication usage, Demonstrated understanding of instructions, follow-up care, medications, Prescriptions given X 1, 15:55 Patient left the ED. jb4 Signatures: Dispatcher [employer] GLENISDC Dana Ho, SHADE SUPERVISOR [employer]-Ckb Sera Nair, Reg Reg mr Desean Harry, RN RN jb4 Rosalie Gordon RN RN tm6
[2024-05-31 16:04] VITALS: TEMP 99.2; O2SAT 99
[2024-05-31 16:06] VITALS: BP 123/69
== END 2024-05-31 15:55 | disposition home or self-care (01) ==
LOC: ER 12:41
DX: M25.521 Pain in right elbow (principal)
CPT/HCPCS: 93971; 96372; 99284

== ENCOUNTER 2024-08-26 11:57 | Emergency (ER) | payer OTHER, SELFPAY ==
--- NOTE | 2024-08-26 14:24 | RAD REPORT ---
EXAMINATION: UPPER EXTREMITY VENOUS UNILATE CLINICAL INDICATION: Male, 58 years old. [facility] MA[facility] SWELLING Bed Name: 19 TECHNIQUE: Complete venous duplex sonography of the right upper extremity was performed. The examinat ion included compression for vein patency, color Doppler imaging and flow augmentation in response to distal compression of the internal jugular, brachiocephalic, subclavian, axillary, brachial, radia l, ulnar, cephalic and basilic veins. COMPARISON: No prior exam. FINDINGS: Duplex sonography testing of the veins of the right upper extremity is completed. Color flow imaging shows all veins to be compressible with appropriate color filling. Pulsatile and phasic flow is present within the upper extremity deep and superficial veins examined. IMPRESSION: There is no deep vein or superficial vein thrombosis.
--- NOTE | 2024-08-26 14:27 | RAD REPORT ---
EXAMINATION: XR Elbow Right 3 View CLINICAL INDICATION: Male, 58 years old. PAIN RIGHT TECHNIQUE: 3 view radiographs of the right elbow were obtained. COMPARISON: 05/31/2024 FINDINGS: Erosive changes involving the olecranon, stable. New erosive changes involving the coronoid process particularly along its lateral aspect. Pronounced soft tissue swelling about the elbow. Suboptimal positioning in the lateral view limits evaluation, however an effusion is suspected with e levation of the anterior and posterior fat pads. IMPRESSION: Progressive erosive changes now involving the coronoid process. Suspected elbow joint effusion, and p ersistent soft tissue swelling. Findings raise concern for an inflammatory or septic arthritis.
[2024-08-26 15:20] LABS: Absolute Eosinophils 0.2 K/uL (0-0.5); Absolute Lymphocytes (CBC) 1.2 K/uL (0.7-4.9); Absolute Monocytes 0.6 K/uL (0.1-1.3); Absolute Neutrophil 2.9 K/uL (1.8-8.0); Basophils % 0.5 % (0-1.3); Eosinophils % 3.5 % (0-4.4); Hematocrit 38.9 % (39.6-49.0); Hemoglobin 13.6 g/dL (13.6-17.9); Lymphocytes % 24.4 % (15.3-44.8); MCH 33.3 pg (27.0-35.0); MCV 95.2 fL (80-100); MPV 7.6 fL (7.6-11.3); Neutrophils % 58.6 % (41.7-73.7); Platelets 85 thou/uL (152-406); RBC Red Blood Cell Count 4.09 M/uL (4.33-5.43)
[2024-08-26 15:28] LABS: PT Prothrombin Time 14.6 SECONDS (10-13.0); PTT, Activated Partial Thromb 32.5 SECONDS (27.2-37.4); Protime INR 1.3
[2024-08-26 15:54] LABS: Blood Morphology Comment NOT SEEN (NOT SEEN); Platelet Estimate DECR; White Blood Cell Scan OK (OK)
--- NOTE | 2024-08-26 17:05 | EDPHYS ---
Physician Documentation [facility] Name: Franklyn Pelayo Age: 58 yrs Sex: Male : 1965 Arrival Date: 08/26/2024 Time: 11:57 Bed 19 Private MD: ED Physician Vinh Jung HPI: 08/26 14:07 This 58 yrs old Male presents to ER via Ambulatory with complaints of Arm Swelling. rt 14:07 Patient presents to the ED with swelling to the right arm for 3 months. States that rt his. Reports pain to the skin, states that the swelling is from the elbow down to the hand. Denies skin changes, other acute complaints, symptoms are moderate in severity, no other bleeding or alleviating factors. Denies discrete trauma .. Historical: - Allergies: 12:07 Codeine; hb 12:07 steroids; hb 12:07 Tegaderm AG Mesh; hb - PMHx: 12:07 Bronchitis; Cirrhosis; Hypertension; hb - Immunization history:: Adult Immunizations up to date. - Infectious Disease History:: Denies. - Social history:: Smoking status: Patient reports the use of cigarette tobacco products, smokes one pack cigarettes per day. - Family history:: not pertinent. ROS: 14:07 Constitutional: Negative for fever, chills, and weight loss, Cardiovascular: Negative rt for chest pain, palpitations, and edema, Respiratory: Negative for shortness of breath, cough, wheezing, and pleuritic chest pain, Abdomen/GI: Negative for abdominal pain, nausea, vomiting, diarrhea, and constipation, Neuro: Negative for headache, weakness, numbness, tingling, and seizure, 14:07 MS/extremity: Positive for pain, swelling, Exam: 14:07 Constitutional: This is a well developed, well nourished patient who is awake, alert, rt and in no acute distress. Head/Face: Normocephalic, atraumatic. Chest/axilla: Normal chest wall appearance and motion. Nontender with no deformity. No lesions are appreciated. Cardiovascular: Regular rate and rhythm with a normal S1 and S2. No gallops, murmurs, or rubs. Normal PMI, no JVD. No pulse deficits. Respiratory: Lungs have equal breath sounds bilaterally, clear to auscultation and percussion. No rales, rhonchi or wheezes noted. No increased work of breathing, no retractions or nasal flaring. Abdomen/GI: Soft, non-tender, with normal bowel sounds. No distension or tympany. No guarding or rebound. No evidence of tenderness throughout. Neuro: Awake and alert, GCS 15, oriented to person, place, time, and situation. Cranial nerves II-XII grossly intact. Motor strength 5/5 in all extremities. Sensory grossly intact. Cerebellar exam normal. Normal gait. 14:07 Musculoskeletal/extremity: 3+ pitting edema from the right elbow to the right hand, no overlying skin changes, no erythema, sensation. 15:48 ECG was reviewed by the Attending Physician. rt Vital Signs: 12:06 BP 146 / 86; Pulse 86; Resp 18; Temp 97.5; Pulse Ox 100% on R/A; Weight 95.25 kg; hb Height 5 ft. 4 in. ; Pain 10/10; 13:03 BP 133 / 74; Pulse 77; Resp 16; Pulse Ox 94% on R/A; me1 14:00 BP 128 / 72; Pulse 78; Resp 15; Pulse Ox 95% ; me1 15:00 BP 136 / 68; Pulse 76; Resp 16; Pulse Ox 94% ; me1 16:00 BP 132 / 70; Pulse 75; Resp 18; Pulse Ox 98% ; me1 17:00 BP 136 / 64; Pulse 75; Resp 16; Temp 98.4; Pulse Ox 95% ; me1 12:06 Body Mass Index 36.04 (95.25 kg, 162.56 cm) hb 12:06 Pain Scale: Adult hb MDM: 12:08 Medical Screening Exam initiated rt 18:42 Differential Diagnosis Gout, septic arthritis, lymphedema. Data reviewed: vital signs, rt nurses notes, lab test result(s), radiologic studies. Management of patient was discussed with the following: Crown Presser: Discussed with Dr. Arroyo orthopedic surgery, very unlikely for this to be a septic arthritis, may follow-up as an outpatient.. Independent interpretation of the following test(s) in the Emergency Department X-Ray: My interpretation is No fracture seen on interpretation of x-ray images. Care significantly affected by the following chronic conditions: Hypertension. Counseling: I had a detailed discussion with the patient and/or guardian regarding the historical points, exam findings, and any diagnostic results supporting the discharge/admit diagnosis, lab results, the need for outpatient follow up. Response to treatment: There is no appreciated change of the patient's symptoms at this time. 08/26 14:44 Order name: Blood Culture Adult (2) rt 08/26 14:44 Order name: CBC with Diff; Complete Time: 16:18 rt 08/26 14:44 Order name: CMP rt 08/26 14:44 Order name: Lactate w/ 2H reflex if indic.; Complete Time: 16:18 rt 08/26 14:44 Order name: Protime (+inr); Complete Time: 16:18 rt 08/26 14:44 Order name: Ptt, Activated; Complete Time: 16:18 rt 08/26 15:25 Order name: CBC Smear Scan; Complete Time: 16:18 EDMS 08/26 12:47 Order name: Elbow Right 3 View XRAY; Complete Time: 14:35 rt 08/26 12:52 Order name: UPPER EXTREMITY VENOUS UNILATE; Complete Time: 14:35 EDMS 08/26 14:44 Order name: EKG; Complete Time: 14:44 rt 08/26 14:44 Order name: Accucheck; Complete Time: 15:22 rt 08/26 14:44 Order name: EKG - Nurse/Tech; Complete Time: 15:22 rt 08/26 14:44 Order name: IV Saline Lock - Large Bore; Complete Time: 15:09 rt 08/26 14:44 Order name: Labs collected and sent; Complete Time: 15: rt 08/26 14:44 Order name: O2 Per Protocol; Complete Time: 15: rt 08/26 14:44 Order name: O2 Sat Monitoring; Complete Time: 15: rt 08/26 14:44 Order name: Vital Signs; Complete Time: 15:09 rt EC:48 Rate is 76 beats/min. Rhythm is regular, Normal Sinus Rhythm with No ectopy. QRS [place] rt is Normal. [place] interval is normal. QRS interval is normal. QT interval is normal. No Q waves. T waves are Normal. No ST changes noted. Interpreted by me. Administered Medications: No medications were administered Disposition Summary: 08/26/24 17:04 Discharge Ordered Notes: Location: Home rt Problem: an ongoing problem rt Symptoms: are unchanged rt Condition: Stable rt Diagnosis - Lymphedema to right upper extremity rt Followup: rt - With: Private Physician - When: 2 - 3 days - Reason: Discharge Instructions: - Discharge Summary Sheet rt - Lymphedema rt Forms: - Medication Reconciliation Form rt - Antibiotic Education rt - Prescription Opioid Use rt - Patient Portal Instructions rt - Leadership Thank You Letter rt Prescriptions: - Lidoderm 5 % Topical adhesive patch, medicated - apply 1 patch TOPICAL route once leave on most painful area for up to 12 hrs; rt 10 patch; Refills: 0, Product Selection Permitted - colchicine 0.6 mg Oral tablet - take 1 tablet ORAL route every 12 hours; 10 tablet; Refills: 0, Product rt Selection Permitted - Tramadol 50 mg Oral tablet - take 1 tablet ORAL route every 8 hours as needed; 15 tablet; Refills: 0, rt Product Selection Permitted Signatures: Dispatcher [employer] EDAnita Gilmore RN RN Vinh Otero MD MD rt Corrections: (The following items were deleted from the chart) 12:47 12:47 Extremity Venous Uni Ltd+US.RAD.BRZ ordered. EDMS EDMS 12:47 12:47 Elbow Right 3 View+RAD.RAD.BRZ ordered. EDMS EDMS 14:44 14:44 BLOOD CULTURE*+BA.LAB.BRZ ordered. EDMS EDMS 14:44 14:44 CBC+H.LAB.BRZ ordered. EDMS EDMS 14:44 14:44 COMPREHENSIVE METABOLIC PANEL+C.LAB.BRZ ordered. EDMS EDMS 14:44 14:44 LACTATE+C.LAB.BRZ ordered. EDMS EDMS 14:44 14:44 PROTIME (+INR)+COAG.LAB.BRZ ordered. EDMS EDMS 14:44 14:44 PTT, ACTIVATED+COAG.LAB.BRZ ordered. EDMS EDMS
--- NOTE | 2024-08-26 17:05 | ER ---
Nurse's Notes [facility] Name: Franklyn Pelayo Age: 58 yrs Sex: Male : 1965 Arrival Date: 08/26/2024 Time: 11:57 Bed 19 Private MD: Diagnosis: Lymphedema to right upper extremity Presentation: 08/26 12:06 Chief complaint: Right arm pain and swelling x 3 days. Coronavirus screen: At this hb time, the client does not indicate any symptoms associated with coronavirus-19. Ebola Screen: No symptoms or risks identified at this time. Initial Sepsis Screen: Does the patient meet any 2 criteria? No. Patient's initial sepsis screen is negative. Does the patient have a suspected source of infection? No. Patient's initial sepsis screen is negative. Risk Assessment: Do you want to hurt yourself or someone else? Patient reports no desire to harm self or others. Onset of symptoms was August 24, 2024. 12:06 Method Of Arrival: Ambulatory hb 12:06 Acuity: RAMONA 3 hb Historical: - Allergies: 12:07 Codeine; hb 12:07 steroids; hb 12:07 Tegaderm AG Mesh; hb - PMHx: 12:07 Bronchitis; Cirrhosis; Hypertension; hb - Immunization history:: Adult Immunizations up to date. - Infectious Disease History:: Denies. - Social history:: Smoking status: Patient reports the use of cigarette tobacco products, smokes one pack cigarettes per day. - Family history:: not pertinent. Screenin:56 [facility] ED Fall Risk Assessment (Adult) History of falling in the last 3 months, me1 including since admission No falls in past 3 months (0 pts) Confusion or Disorientation No (0 pts) Intoxicated or Sedated No (0 pts) Impaired Gait No (0 pts) Mobility Assist Device Used No (0 pt) Altered Elimination No (0 pt) Score/Fall Risk Level 0 - 2 = Low Risk Maintained a safe environment, Provided non-skid footwear, Hourly rounding (assess needs \T\ fall precautionary measures) done. Abuse screen: Denies threats or abuse. Nutritional screening: No deficits noted. Tuberculosis screening: No symptoms or risk factors identified. Assessment: 12:56 General: Appears uncomfortable, Behavior is calm, cooperative, appropriate for age, me1 Reports Right arm pain and swelling x 3 days. Pain: Complains of pain in right arm Pain does not radiate. Pain currently is 10 out of 10 on a pain scale. Quality of pain is described as pulling. Neuro: Level of Consciousness is awake, alert, obeys commands, Oriented to person, place, time, situation, Appropriate for age. Cardiovascular: Patient's skin is warm and dry. Respiratory: Airway is patent Respiratory effort is even, unlabored, Respiratory pattern is regular, symmetrical. GI: No signs and/or symptoms were reported involving the gastrointestinal system. : No signs and/or symptoms were reported regarding the genitourinary system. EENT: No signs and/or symptoms were reported regarding the EENT system. Derm: Skin is intact, is healthy with good turgor, Skin is pink, warm \T\ dry. Musculoskeletal: Reports pain in right arm. 12:56 Musculoskeletal: Swelling present in right arm. me1 Vital Signs: 12:06 BP 146 / 86; Pulse 86; Resp 18; Temp 97.5; Pulse Ox 100% on R/A; Weight 95.25 kg; hb Height 5 ft. 4 in. ; Pain 10/10; 13:03 BP 133 / 74; Pulse 77; Resp 16; Pulse Ox 94% on R/A; me1 14:00 BP 128 / 72; Pulse 78; Resp 15; Pulse Ox 95% ; me1 15:00 BP 136 / 68; Pulse 76; Resp 16; Pulse Ox 94% ; me1 16:00 BP 132 / 70; Pulse 75; Resp 18; Pulse Ox 98% ; me1 17:00 BP 136 / 64; Pulse 75; Resp 16; Temp 98.4; Pulse Ox 95% ; me1 12:06 Body Mass Index 36.04 (95.25 kg, 162.56 cm) hb 12:06 Pain Scale: Adult hb ED Course: 11:59 Patient arrived in ED. mr 12:02 Vinh Jung MD is Attending Physician. rt 12:07 Triage completed. hb 12:08 Arm band placed on. hb 12:42 Cecilia Du, KATE is Primary Nurse. me1 12:56 Patient has correct armband on for positive identification. Bed in low position. Call me1 light in reach. Side rails up X 1. Provided Education on: POC. Verbalized understanding.. Client placed on continuous cardiac and pulse oximetry monitoring. NIBP monitoring applied. Pulse ox on. NIBP on. 12:56 No provider procedures requiring assistance completed. me1 13:14 Elbow Right 3 View XRAY In Process Unspecified. EDMS 13:23 UPPER EXTREMITY VENOUS UNILATE In Process Unspecified. EDMS 15:06 Initial lab(s) drawn, by me, sent to lab. First set of blood cultures drawn by me. me1 15:09 Inserted saline lock: 20 gauge in left antecubital area, using aseptic technique. me1 15:09 Blood Culture Adult (2) Sent. me1 15:09 CBC with Diff Sent. me1 15:09 CMP Sent. me1 15:09 Lactate w/ 2H reflex if indic. Sent. me1 15:09 Protime (+inr) Sent. me1 15:09 Ptt, Activated Sent. me1 15:14 Second set of blood cultures drawn by me. me1 17:24 IV discontinued, intact, bleeding controlled, No redness/swelling at site. Pressure me1 dressing applied. Administered Medications: No medications were administered Medication: 12:56 VIS not applicable for this client. me1 Outcome: 17:04 Discharge ordered by . rt 17:24 Discharged to home ambulatory, with friend, me1 17:24 Condition: stable 17:24 Discharge instructions given to patient, Instructed on discharge instructions, follow up and referral plans. medication usage, Demonstrated understanding of instructions, follow-up care, medications, Prescriptions given X 3, 17:25 Patient left the ED. me1 Signatures: Dispatcher [employer] EDWV NairSera marshall, Reg Reg mr Anita Paz RN RN hb Vinh Jung MD MD rt Cecilia Du RN RN me1 Corrections: (The following items were deleted from the chart) 12:08 12:06 BP 146 / 86; Pulse 86bpm; Resp 86bpm; Pulse Ox 100% RA; Temp 97.5F; 95.25 kg; hb Height 5 ft. 4 in.; BMI: 36.0; Pain 10/10, Adult; hb 12:56 12:06 Chief complaint: Right arm pain and swelling x 3 days hb me1 17:25 12:56 Patient did not have IV access during this emergency room visit. me1 me1
[2024-08-26 17:35] VITALS: BP 136/64; TEMP 98.4; O2SAT 95
[2024-08-26 19:02] LABS: Albumin 2.8 g/dL (3.4-5.0); Albumin/Globulin Ratio 0.6 (1.1-1.8); Anion Gap 7.6 mEq/L (5.0-15.0); Bilirubin Total 1.4 mg/dL (0.2-1.0); Globulin 4.9 g/dL (2.3-3.5); Potassium 3.6 mEq/L (3.5-5.1); Protein, Total 7.7 g/dL (6.4-8.2)
== END 2024-08-26 17:25 | disposition home or self-care (01) ==
LOC: ER 11:57
DX: I89.0 Lymphedema, not elsewhere classified (principal)
CPT/HCPCS: 36415; 80053; 83605; 85025; 85610; 85730; 87040; 93005; 93971; 99284